=== PATIENT | female | born 1980 | race Caucasian/White ===

== ENCOUNTER 2019-01-02 12:09 | Day surgery (SDC) | payer OTHER ==
[2019-01-01 10:55] VITALS: BMI 30.7
[2019-01-02] MEDS ORDERED: Fentanyl 100 MCG/2 ML VIAL ONE ×3 (13:19→14:45)
[2019-01-02] MEDS ORDERED: Midazolam HCl 2 mg/2 ml Vial ONE (13:45)
[2019-01-02] MEDS ORDERED: Meperidine HCl/PF 25 MG/ML VIAL ONE (14:40)
--- NOTE | 2019-01-02 14:54 | OP ---
DATE OF PROCEDURE: 01/02/2019 OPERATION PERFORMED: Closed reduction and percutaneous pinning of right 5th toe proximal phalanx fracture. PREOPERATIVE DIAGNOSIS: Right 5th toe proximal phalanx fracture with displacement. POSTOPERATIVE DIAGNOSIS: Right 5th toe proximal phalanx fracture with displacement. COMPLICATIONS: None. ESTIMATED BLOOD LOSS: Minimal. IMPLANTS: A single 0.045 K-wire was used. INDICATIONS: Mayra is a 38-year-old female, who struck her foot against the wall. She fractured her 5th toe. She had a displaced proximal phalanx fracture. She was indicated for closed reduction and percutaneous pinning to restore anatomic alignment. Risks were reviewed in detail. She elected to proceed with the operation. DESCRIPTION OF OPERATION: The patient's foot and toe were visualized under intraoperative x-ray. We then manipulated the proximal phalanx fracture by traction and medial deviation. We were able to reduce the phalanx fracture back into its anatomic position using x-ray guidance. Once this was acceptably reduced, we then passed a 0.045 K-wire from distal to proximal through the toe across the fracture. This stabilized the fracture well. We took final images. We thoroughly irrigated with copious lavage. The patient was then taken to the recovery room in good condition without complication. Job ID: [id number]
--- NOTE | 2019-01-02 15:04 | RAD ---
TWO VIEWS RIGHT SMALL DIGIT: DATE: 01/02/2019. PROVIDED CLINICAL HISTORY: Pinning. FINDINGS: Two spot fluoroscopic intraoperative images of the right small digit demonstrate K-wire extending to small digit proximal phalangeal fracture. IMPRESSION: As above. POS: OFF
== END 2019-01-02 15:48 | disposition home or self-care (01) ==
LOC: SDC 12:09
PROVIDERS: ATTEND Orthopaedic Surgery
PROC: 0QSQ34Z Reposition Right Toe Phalanx with Internal Fixation Device, Percutaneous Approach (ICD-10-PCS; principal; 2019-01-02)
DX: S92.502A Displaced unspecified fracture of left lesser toe(s), initial encounter for closed fracture (principal); E07.9 Disorder of thyroid, unspecified; F41.9 Anxiety disorder, unspecified; Z79.899 Other long term (current) drug therapy; Z87.891 Personal history of nicotine dependence; W22.8XXA Striking against or struck by other objects, initial encounter
CPT/HCPCS: 76000; J0131; J0690; J2175; J2250; J3010